=== PATIENT | female | born 1985 | race Caucasian/White ===

== ENCOUNTER 2017-06-11 08:33 | Emergency (ER) | payer SELFPAY ==
[2017-06-11] MEDS ORDERED: Ketorolac Tromethamine 60 MG/2 ML VIAL ONE (09:05)
--- NOTE | 2017-06-11 09:26 | RAD ---
CHEST 2 VIEWS: Date: 06/11/17 HISTORY: Chest pain. COMPARISON: None. FINDINGS: Lungs are clear. No pneumothorax or effusion. Cardiac silhouette and mediastinal contour within sai l limits. IMPRESSION: No acute intrathoracic abnormality. POS: [facility]
== END 2017-06-11 09:18 | disposition home or self-care (01) ==
LOC: ERS 08:33
DX: R07.89 Other chest pain (principal); F31.9 Bipolar disorder, unspecified; F41.9 Anxiety disorder, unspecified; G40.909 Epilepsy, unspecified, not intractable, without status epilepticus
CPT/HCPCS: 71020; 93005; 96372; J1885

== ENCOUNTER 2017-06-24 18:47 | Emergency (ER) | payer SELFPAY ==
[2017-06-24] MEDS ORDERED: Nitroglycerin 2% Ointment 1 INCH/1 GM Packet ONE (19:35)
[2017-06-24] MEDS ORDERED: Mag-Al 1200 mg/1200 mg/30 ML UDCUP ONE (19:35)
[2017-06-24] MEDS ORDERED: Lidocaine Viscous Sol 2% 15 ml UD Cup ONE (19:35)
[2017-06-24 19:45] LABS: #Basophils 0.1 thou/uL (0.0-0.2); #Eosinphils 0.1 thou/uL (0.0-0.7); #Lymphocytes 2.2 thou/uL (1.20-3.40); #Monocytes 0.5 thou/uL (0.11-0.59); #Neutrophils 3.3 thou/uL (1.40-6.50); %Basophils 1.2 % (0.0-1.0); %Eosinophils 1.5 % (0.0-10.0); %Lymphocytes 35.2 % (21.0-51.0); %Monocytes 8.5 % (0.0-10.0); %Neutrophils 53.6 % (42.0-75.0); Hemoglobin 13.6 g/dL (12.0-16.0); Mean Corpuscular HGB CONC 32.6 g/dL (32.0-36.0); Mean Corpuscular Hemoglobin 31.5 pg (27.0-31.0); Mean Corpuscular Volume 96.6 fl (81.0-99.0); Mean Platelet Volume 8.9 fL (7.4-10.4); Platelet Count 102 thou/uL (130-400); RBC Distribution Width 11.4 % (11.5-14.5); Red Blood Cell (RBC) Count 4.33 mill/uL (4.20-5.40); White Blood Cell (WBC) Count 6.2 thou/uL (4.8-10.8)
[2017-06-24 20:10] LABS: PLT Morphology Comment Appears Decreased
[2017-06-24 20:13] LABS: CKMB 0.7 ng/mL (0-6.6); Troponin I Less than 0.010 ng/mL (< 0.028)
--- NOTE | 2017-06-24 20:31 | RAD ---
EXAM: ONE VIEW CHEST 06/24/17 HISTORY: Chest pain. COMPARISON: 06/11/17. FINDINGS: Portable upright chest demonstrates a normal cardiac silhouette. The lungs and pleural bases are hunter r. No pneumothorax or osseous abnormalities. IMPRESSION: No acute cardiopulmonary process. POS: [facility]
[2017-06-24 20:42] LABS: Digoxin Less than 0.15 ng/mL (0.8-2.0)
[2017-06-24 20:44] LABS: ALT (SGPT) Less than 7 U/L (8-55); AST (SGOT) 13 U/L (5-34); Albumin 4.2 g/dL (3.5-5.0); Alkaline Phosphatase 125 U/L (40-150); Anion Gap 12 mmol/L (10-20); BUN (Urea Nitrogen) 11 mg/dL (7.0-18.7); Bilirubin, Total Less than 0.2 mg/dL (0.2-1.2); CK (CPK) 66 U/L (29-168); Calc. Creatinine Clearance 0 mL/min (70-130); Calcium 9.3 mg/dL (7.8-10.44); Carbon Dioxide 27 mmol/L (22-29); Chloride 105 mmol/L (98-107); Estimated GFR-MDRD Greater than 90; Globulin 2.7 g/dL (2.4-3.5); Glucose 128 mg/dL (70-105); Lipase 20 U/L (8-78); Potassium 4.1 mmol/L (3.5-5.1); Protein, Total 6.9 g/dL (6.0-8.3); Sodium 140 mmol/L (136-145)
== END 2017-06-24 21:55 | disposition home or self-care (01) ==
LOC: ERS 18:47
DX: R07.89 Other chest pain (principal); F31.9 Bipolar disorder, unspecified; Z79.899 Other long term (current) drug therapy
CPT/HCPCS: 36415; 71045; 80053; 80162; 82550; 82553; 83690; 84443; 84484; 85025; 93005

== ENCOUNTER 2017-07-24 13:53 | Emergency (ER) | payer SELFPAY ==
[2017-07-24] MEDS ORDERED: Ketorolac Tromethamine 30 MG/ML VIAL ONE (15:03)
--- NOTE | 2017-07-24 15:33 | RAD ---
FOUR VIEWS OF THE RIGHT KNEE 07/24/17 INDICATION: Right knee pain after stumbling and hitting right knee. FINDINGS: There is mild joint capsular distention. There is osteoarthritic change involving the patellofemoral compartment. IMPRESSION: 1. Joint capsular distention without evidence of acute osseous abnormality. 2. Mild osteoarthrosis of the patellofemoral compartment. POS: [facility]
== END 2017-07-24 15:27 | disposition home or self-care (01) ==
LOC: ERS 13:53
DX: M25.561 Pain in right knee (principal); G40.909 Epilepsy, unspecified, not intractable, without status epilepticus; F31.9 Bipolar disorder, unspecified; Z79.899 Other long term (current) drug therapy; W22.8XXA Striking against or struck by other objects, initial encounter; Y92.811 Bus as the place of occurrence of the external cause
CPT/HCPCS: 96372; J1885